=== PATIENT | female | born 1970 | race Caucasian/White ===

== ENCOUNTER → 2024-07-21 | Day surgery (SDC) | payer OTHER ==
[~2024-07-21] MED LIST: AMLODIPINE BESY10 MG PO; FENTANYL CITRATE/PF 100MCG/2 ML INJ ONE; HYOSCYAMINE SULFATE 0.5 MG/ML INJ ONE; LIDOCAINE HCL 2% LOCAL INJ 5 ML SDV VIAL INJ ONE; NOT TAKING MEDS; PROPOFOL IV EMULSION 10 MG/ML 20 ML VIAL ONE; PROPOFOL IV EMULSION 50 ML IV ONE
[2024-07-21] MEDS: LACTATED RINGER'S 1,000 ML BAG IV ONE (08:15)
[2024-07-21 11:28] VITALS: BP 109/72; PULSE 79; RESP 16; TEMP 98.9; O2SAT 97
== END | disposition home or self-care (01) ==
LOC: OR 07:24
PROVIDERS: ATTEND Internal Medicine Gastroenterology
DX: R19.5 Other fecal abnormalities (principal); D12.5 Benign neoplasm of sigmoid colon; K63.5 Polyp of colon; D12.8 Benign neoplasm of rectum; K57.30 Diverticulosis of large intestine without perforation or abscess without bleeding; K64.8 Other hemorrhoids; I10 Essential (primary) hypertension; Z71.3 Dietary counseling and surveillance; Z68.27 Body mass index [BMI] 27.0-27.9, adult; Z01.810 Encounter for preprocedural cardiovascular examination
CPT/HCPCS: 45385; 93005; J1980; J2003; J2704 ×2; J3010; J7121; 45378